=== PATIENT | male | born 1975 | race Caucasian/White ===

== ENCOUNTER 2017-08-14 18:45 | Emergency (ER) | payer OTHER ==
[2017-08-14 19:21] LABS: #Eosinphils 0.1 thou/uL (0.0-0.7); #Lymphocytes 2.4 thou/uL (1.20-3.40); #Monocytes 0.4 thou/uL (0.11-0.59); #Neutrophils 3.4 thou/uL (1.40-6.50); %Basophils 0.7 % (0.0-1.0); %Eosinophils 0.8 % (0.0-10.0); %Lymphocytes 37.8 % (21.0-51.0); %Monocytes 6.5 % (0.0-10.0); Hematocrit 46.2 % (42.0-52.0); Mean Platelet Volume 7.1 fL (7.4-10.4); Red Blood Cell (RBC) Count 5.65 mill/uL (4.70-6.10); White Blood Cell (WBC) Count 6.3 thou/uL (4.8-10.8)
[2017-08-14 19:44] LABS: Acetaminophen Less than 6.0 mcg/mL (10.0-30.0); Salicylate Less than 8.0 mg/dL (15.0-30.0)
[2017-08-14 19:45] LABS: ALT (SGPT) 23 U/L (8-55); AST (SGOT) 31 U/L (5-34); Alkaline Phosphatase 111 U/L (40-150); Anion Gap 17 mmol/L (10-20); BUN (Urea Nitrogen) 8 mg/dL (8.9-20.6); Bilirubin, Total Less than 0.2 mg/dL (0.2-1.2); Calc. Creatinine Clearance 0 mL/min (70-130); Calcium 8.7 mg/dL (7.8-10.44); Carbon Dioxide 22 mmol/L (22-29); Chloride 107 mmol/L (98-107); Estimated GFR-MDRD 60; Globulin 4.3 g/dL (2.4-3.5); Protein, Total 8.3 g/dL (6.0-8.3)
[2017-08-14] MEDS ORDERED: Lorazepam 1 MG TAB ONE (20:08)
[2017-08-14] MEDS ORDERED: Dexamethasone 10 MG/ML VIAL FS SCH (20:30)
[2017-08-14] MEDS ORDERED: Dexamethasone 4 mg/ml Vial ONE (20:35)
[2017-08-14] MEDS ORDERED: Ziprasidone 20 MG VIAL ONE (21:26)
[2017-08-14] MEDS ORDERED: Sterile Water 10 ML ONE (21:27)
[2017-08-14 22:25] LABS: Bilirubin Negative (Negative); Blood, Urine Negative (Negative); Glucose, Urine (Dipstick) Negative (Negative); Ketone, Urine Negative (Negative); Nitrite Negative (Negative); Protein, Urine (Dipstick) Negative (Neg-Trace); Urobilinogen 0.2 mg/dL (0.2-1.0)
[2017-08-14 22:41] LABS: Amphetamine Not Detected (NotDetected); Methadone Not Detected (NotDetected); Methamphetamine Not Detected (NotDetected)
[2017-08-15] MEDS ORDERED: Acetaminophen 500 MG TAB ONE ×2 (06:30→17:59)
[2017-08-15] MEDS ORDERED: Mag-Al 1200 mg/1200 mg/30 ML UDCUP ONE (10:03)
[2017-08-15] MEDS ORDERED: HYDROcodone/Acetaminophen 10/325 mg Tablet ONE (10:03)
[2017-08-15] MEDS ORDERED: Lidocaine Viscous Sol 2% 15 ml UD Cup ONE (10:03)
[2017-08-16] MEDS ORDERED: Ondansetron ODT 4 MG TAB ONE (12:04)
[2017-08-16] MEDS ORDERED: hydrOXYzine 25 MG TAB PO ONE (14:00)
== END 2017-08-16 13:57 ==
LOC: ERS 18:45
DX: R45.851 Suicidal ideations (principal); F10.129 Alcohol abuse with intoxication, unspecified; K50.90 Crohn's disease, unspecified, without complications; F41.9 Anxiety disorder, unspecified; F32.9 Major depressive disorder, single episode, unspecified
CPT/HCPCS: 36415; 51701; 80053; 80306; 80307; 81003; 82550; 84443; 85025; 96372; A4216; J1100; J3486; Q0162

== ENCOUNTER 2020-10-19 21:57 | Inpatient (IN) | payer OTHER ==
--- NOTE | 2020-10-19 23:27 | RAD ---
PORTABLE CHEST: Date: 10/19/2020 PROVIDED CLINICAL HISTORY: Small bowel obstruction. FINDINGS: Correlation is made with CT examination performed earlier same date and chest radiograph of 4. The cardiac silhouette appears enlarged, likely at least partially on the basis of portable technique . The lung apices are not included, limiting evaluation. The visualized lung parenchyma is free of morrow spicious opacity. There is no pleural fluid evident. Evaluation for pneumothorax is limited. An enter ic catheter is noted, the distal side hole lucency of which overlies the expected location of the dis jasmine thoracic esophagus and this catheter could be advanced. Extensive peritoneal calcifications are a gain seen. IMPRESSION: Enteric catheter positioning as described. POS: ALEX
[2020-10-20] MEDS ORDERED: Sodium Chloride 0.9% (PF) 10 ML VIAL FS PRN (00:45)
[2020-10-20] MEDS ORDERED: Ondansetron ODT 4 MG TAB SL PRN (00:45)
[2020-10-20] MEDS ORDERED: Ondansetron PF 4 MG/2 ML Vial IVP PRN (00:45)
[2020-10-20] MEDS: Morphine 4 MG/ML VIAL SLOW IVP PRN ×6 (00:48→21:43)
[2020-10-20] MEDS: Sodium Chloride 0.9% 1,000 ML IV SCH ×2 (00:49→08:57)
[2020-10-20 01:32] VITALS: BMI 32.5
[2020-10-20] MEDS ORDERED: Pantoprazole 40 MG VIAL IVP SCH (09:00)
[2020-10-20] MEDS ORDERED: MD-Gastroview 120 ML BOT ONE (09:35)
[2020-10-20] MEDS ORDERED: Ketorolac Tromethamine 30 MG/ML VIAL ONE (11:28)
[2020-10-20] MEDS ORDERED: Ketorolac Tromethamine 30 MG/ML VIAL IVP SCH (11:30)
--- NOTE | 2020-10-20 13:02 | RAD ---
Gastrografin enema Power scribe today COMPARISON: CT of the abdomen pelvis 10/19/2020 HISTORY: Evaluate patency of anastomosis FINDINGS: Esol Teacher Assistant imaging of the abdomen and pelvis demonstrate scattered areas of peritoneal calcifica tion. Nasogastric tube curls in the upper abdomen. Gastrografin was instilled in a retrograde fashion. The contrast media opacifies the colon from the l evel of the rectum through the level of the mid transverse colon. There is a small bowel to colonic anastomosis in the region of the mid transverse colon. The contrast traverses the anastomosis without delay and fills multiple small bowel loops proximal to the anastomosis. No extraluminal contrast media seen to suggest the presence of a leak at the anastomosis. Some of the small bowel loops just proximal to the anastomosis are dilated. IMPRESSION: Gastrografin enema demonstrates patency of the anastomosis involving small bowel to trans verse colon with no evidence for extraluminal contrast media/leak.
[2020-10-20 16:22] LABS: SARS-CoV-2 MS2 Positive; SARS-CoV-2 N Gene Negative; SARS-CoV-2 S Gene Negative; SARS-CoV-2 by NAA Not Detected (NotDetected); SARS-CoV-2 orf1ab Negative
--- NOTE | 2020-10-20 17:20 | CON ---
DATE OF CONSULTATION: 10/20/2020 REQUESTING PHYSICIAN: Dr. Root. REASON FOR CONSULTATION: Crohn disease and small bowel obstruction. HISTORY OF PRESENT ILLNESS: Kranthi Whitaker is a 45-year-old man with a history of obesity, depression, anxiety, and Crohn disease. He has a complicated Crohn's history. He says he was diagnosed about 23 years ago. He has small and large bowel stricturing disease. He has actually had 14 prior surgeries including 3 ileostomies. He has had complications of perforation with initial barium study and has developed a lot of intraabdominal adhesive disease. At one point back around 2014, he was on TPN for a year. At this point, he is on Humira monotherapy at the standard dose of 40 mg injected every 2 weeks. This is under the direction of Dr. Ian Ackerman, IBD specialist at [facility] in [place]. He gets all of his care at the [facility] and [facility]. Over the past several years, he says he will have at least 2 to 3 episodes per year of bowel obstructions requiring hospitalization for varying amounts of time. He was admitted here last night with several days of worsening abdominal pain and distention followed by nausea. Upon presentation last night, he had a mild leukocytosis with WBC 11.3, and CT of the abdomen and pelvis demonstrated extensive postoperative changes in the right abdomen with multiple dilated small bowel loops in the area representing small bowel obstruction. The colon was decompressed and there is no inflammatory stranding. He had a Gastrografin enema study done today and this shows that the small bowel to transverse colon anastomosis appears patent without any evidence of leak. He is currently feeling okay, pain fairly well controlled, NG tube to suction, sucking out bilious liquid. He is passing a little bit of gas this afternoon. REVIEW OF SYSTEMS: Full review of systems including constitutional, head, eyes, ears, nose, throat, GI, , cardiovascular, respiratory, musculoskeletal, neurologic systems is negative except as noted in the HPI. PAST MEDICAL HISTORY: 1. Crohn disease. 2. Fourteen prior abdominal surgeries. 3. Depression and anxiety. 4. Hypertension. SOCIAL HISTORY: No smoking, alcohol, or drug use. FAMILY HISTORY: Noncontributory. ALLERGIES: CODEINE. OUTPATIENT MEDICATIONS: 1. Vitamin D3. 2. Atenolol. 3. Atorvastatin. 4. Bupropion. 5. Vitamin B12. 6. Cyproheptadine. 7. Fluoxetine. 8. Seroquel. 9. Diazepam. 10. Humira 40 mg subcutaneously every 2 weeks. PHYSICAL EXAMINATION: VITAL SIGNS: Temperature 98, pulse 81, blood pressure 148/80, 90% oxygen saturation on room air. GENERAL: Obese 45-year-old man, lying in bed comfortably, in no distress. SKIN: No jaundice. No rashes were palpable. EYES: No scleral icterus. Extraocular movements intact. ENT: He has nasogastric tube to the left naris suctioning out dark bilious fluid but no blood. Mucous membranes moist. LYMPH: No submandibular or supraclavicular lymphadenopathy. THYROID: Nontender to palpation. HEART: Regular rate and rhythm. LUNGS: Clear to auscultation bilaterally. ABDOMEN: Multiple abdominal surgical scars, are all well healed. Mild distention. High-pitched bowel sounds in all 4 quadrants, particularly on the right side of the abdomen. Diffuse tenderness to palpation, but no guarding or rebound tenderness. EXTREMITIES: No peripheral edema. VESSELS: Radial pulses 2+ bilaterally. NEURO: Cranial nerves 2 through 12 intact bilaterally. No focal deficits. Mental; he is somnolent, but easily arousable and oriented x3. LABORATORY STUDIES: WBC 11.3, hemoglobin 16.0, platelets 248. Sodium 139, potassium 4.2, BUN 18, creatinine 1.23. Lipase only 21. LFTs all normal with total bilirubin 0.3, alkaline phosphatase 104, AST 26, ALT 39, albumin 4.3. COVID PCR is pending. IMAGING STUDIES: CT of the abdomen and pelvis demonstrated extensive peritoneal calcifications, absence of the right hemicolon, extensive postoperative changes of the right abdomen with multiple dilated small-bowel loops representing small bowel obstruction, but decompression of the colon. There is no inflammatory stranding noted. There is also a 2.1 cm density adjacent to the head of the pancreas, which is indeterminate. Gastrografin enema demonstrates patency of the small bowel to transverse colon anastomosis without evidence of leak. ASSESSMENT AND PLAN: 1. Small-bowel obstruction, recurrent. 2. Crohn disease, complicated history, but it appears with minimal active inflammatory disease, on Humira monotherapy. 3. Intraabdominal adhesive disease, with multiple prior small bowel obstructions. This is a difficult situation as the patient has what appears to be extensive intraabdominal adhesive disease and has had multiple prior presentations. 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 We can check some inflammatory markers with labs tomorrow, but I do not anticipate making any changes in therapy here nor do I think prednisone is necessarily going to help at this time. Continue nasogastric tube for now, but if output decreases, hopefully we will see this resolve within the next day or two. 4. Indeterminate pancreatic lesion. There is a 2.1 cm density adjacent to the head of the pancreas. I do not have any prior imaging to compare this to. This is an incidental finding and not likely to represent any malignant process. He should have a dedicated CT of the abdomen, pancreatic protocol, at some point in the next 2 to 3 months to follow this up. This could be done with his primary providers at [facility] in [place]. Thank you for the consultation. Please call anytime with questions or concerns. Job ID: [id number]
[2020-10-20] MEDS: D5 1/2 NS w/20 mEq KCL 1,000 ML IV SCH ×2 (17:37→21:22)
--- NOTE | 2020-10-20 18:02 | PDOC.HOSPP ---
- Subjective Encounter Date: 10/20/20 Encounter Time: 17:58 Subjective: CONSULTATION NOTE CONSULT REQUESTED BY: DR. HAMEED CONSULT FOR: MEDICAL MANAGEMENT HISTORY OF PRESENT ILLNESS: Mr. Whitaker is a 45-year-old male with past medical history significant for severe Crohn's disease requiring multiple abdominal surgeries including bowel resections and multiple ileostomies, hypertension, hyperlipidemia, PTSD, anxiety/depression, septic shock secondary to Crohn's disease with cardiac arrest x2 in 2012. He presented to the emergency room for abdominal pain and was found to have a small bowel obstruction. Patient was admitted by general surgery service and underwent a barium enema. Patient currently in bed resting comfortably. He denies chest pain, shortness of breath, palpitations. He endorses mild to moderate abdominal pain, which she reports has improved since his barium enema. He has an NG tube in place which he reports has also improved his abdominal discomfort. Patient reports his abdominal pain began a few days prior to admission around giving. Hospital service consulted for medical management of patient's chronic conditions. - Objective Vital Signs & Weight: Vital Signs (12 hours) Temp Pulse Resp BP Pulse Ox 10/20/20 16:24 98.1 F 67 18 129/83 90 L 10/20/20 11:58 98.0 F 81 12 148/80 H 90 L 10/20/20 08:09 99.1 F 92 16 135/80 93 L 10/20/20 08:00 93 L Weight Weight 220 lb I&O: 10/19/20 10/20/20 10/21/20 06:59 06:59 06:59 Intake Total 720 Balance 720 Hospitalist ROS - Review of Systems Constitutional: denies: fever, chills, sweats Eyes: denies: vision change ENT: denies: nose congestion, throat pain Respiratory: denies: cough, shortness of breath, hemoptysis Cardiovascular: denies: chest pain, palpitations, orthopnea, light headedness Gastrointestinal: reports: nausea, abdominal pain Genitourinary: denies: dysuria Skin: denies: rash, lesions Neurological: denies: weakness, numbness - Medication Medications: Patient's home medications include Atenolol Atorvastatin Bupropion Vitamin D Vitamin B12 Cyproheptadine Diazepam Fluoxetine Seroquel Patient reports allergy to codeine which he reports behavioral disturbance from - Exam General Appearance: NAD, awake alert General - other findings: NG tube in place Eye: PERRL, anicteric sclera ENT: normocephalic atraumatic, no oropharyngeal lesions, moist mucosa Neck: supple, symmetric, no JVD, no thyromegaly, no lymphadenopathy, no carotid bruit Heart: RRR, no murmur, no gallops, no rubs, normal peripheral pulses Respiratory: CTAB, no wheezes, no rales, no ronchi, normal chest expansion, no tachypnea, normal percussion Gastrointestinal: soft, tender to palpation Gastrointestinal - other findings: Hyperactive bowel sounds, multiple abdominal scars Extremities: no cyanosis, no clubbing, no edema Skin: normal turgor, no lesions, no rashes Neurological: cranial nerve grossly intact, normal sensation to touch, no weakness, no focal deficits, no new deficit Musculoskeletal: normal tone, normal strength, no muscle wasting Psychiatric: normal affect, normal behavior, A&O x 3 Hosp A/P - Plan 45-year-old male with past medical history significant for severe Crohn's disease requiring multiple surgeries, PTSD, anxiety and depression, hypertension, hyperlipidemia presents with abdominal pain found to have small bowel obstruction. Hospitalist service consulted for medical management of patient's chronic conditions. Small bowel obstruction Patient with abdominal pain, history significant for multiple abdominal surgeries. Patient admitted by general surgery for small bowel obstruction. Patient underwent therapeutic barium enema. NG tube is in place. Plan General surgery primary Crohn's disease Patient has severe Crohn's disease requiring multiple surgeries including bowel resections and ileostomy's. Patient also had severe sepsis secondary to Crohn's which resulted in cardiac arrest x2 and prolonged 1 year ICU stay in 2013. Patient follows with Dr. Ian Ackerman at [facility] in [place]. He is maintained on Humira. Gastroenterology was consulted for further recommendations. We will draw inflammatory markers. Plan Inflammatory markers GI consult, recommendations appreciated Pancreatic lesion Patient had incidental mass adjacent to head of pancreas. Patient will need outpatient follow-up for this incidental finding. Leukocytosis White blood cell count elevated to 11.3. Likely reactive. No other signs of i nfection at this time. Patient afebrile, not tachycardic not tachypneic. Does not meet SIRS criteria currently. We will continue to monitor Plan Trend white blood cell count Hypertension History of hypertension on atenolol. Patient normotensive. We will continue home atenolol. Hyperlipidemia We will continue home atorvastatin. Anxiety and depression History of PTSD, anxiety/depression. On home Wellbutrin, cyproheptadine, Valium, fluoxetine and Seroquel. We will continue home medications. Patient currently denies SI/HI. DVT prophylaxisper surgical team Full code
[2020-10-20] MEDS: Atenolol 25 MG TAB PO SCH (20:28)
[2020-10-20] MEDS: Pantoprazole 40 MG VIAL IVP SCH (20:28)
[2020-10-20] MEDS: Atorvastatin Calcium 10 MG TAB PO SCH (20:28)
[2020-10-20] MEDS: FLUoxetine HCl 20 MG CAP PO SCH (20:29)
[2020-10-20] MEDS: Cyproheptadine 4 MG TAB PO SCH (21:43)
[2020-10-21] MEDS: D5 1/2 NS w/20 mEq KCL 1,000 ML IV SCH ×3 (03:33→21:14)
[2020-10-21] MEDS: Morphine 4 MG/ML VIAL SLOW IVP PRN ×3 (03:33→12:36)
--- NOTE | 2020-10-21 07:48 | HP ---
CHIEF COMPLAINT: Abdominal pain, nausea and vomiting. HISTORY OF PRESENT ILLNESS: Mr. Whitaker is a 45-year-old man with a past history of Crohn disease, status post 14 surgeries for this at the [facility]. His terrazzo tile setter is a Jamie terrazzo tile setter in [place] and he has not really received any care for his Crohn's at our facility. He states that he was in his normal state of health until yesterday, when he started having diffuse crampy abdominal pain across the entire upper abdomen, coming in waves, he then began throwing up and the pain was not getting better, so he came to the emergency room. He underwent a CT of the abdomen and pelvis, which showed evidence of a small bowel obstruction. The transition point was possibly at his enterocolic anastomosis in the transverse colon. He had an NG tube placed and was transferred to [place] for further care. Since then, the waves of abdominal pain across the upper abdomen have resolved, but he is still having some pain in the right side of his abdomen. He has not had any further vomiting since placement of the NG tube and there is bilious output from this. He has not had a bowel movements or pass gas to his knowledge since onset of his symptoms. PAST MEDICAL HISTORY: Crohn disease, hypertension. PAST SURGICAL HISTORY: Fourteen laparotomies including three ostomies and subsequent take downs. He had one episode, where he had an upper GI with barium and then underwent a resection for a stricture, but the anastomosis blew out and had a barium peritonitis for 3 months. His last surgery was a few years back. He does not currently have any ostomies. SOCIAL HISTORY: The patient does not smoke, drink, or use illicit drugs. He receives most of his care at the [facility]. OUTPATIENT MEDICATIONS: Include; 1. Humira 40 mg subcu every two weeks, administered yesterday. 2. Seroquel 400 mg p.o. daily. 3. Fluoxetine 20 mg p.o. daily. 4. Diazepam 5 mg p.o. p.r.n. anxiety. 5. Cyproheptadine 4 mg p.o. daily. 6. Vitamin B12, 1000 mcg p.o. daily. 7. Bupropion 300 mg p.o. daily. 8. Atorvastatin 10 mg p.o. daily. 9. Atenolol 25 mg p.o. daily. 10. Vitamin D3, 50,000 units p.o. daily. REVIEW OF SYSTEMS: Ten system review of systems is negative except per HPI and headache. PHYSICAL EXAMINATION: VITAL SIGNS: The patient has been afebrile since admission. Heart rate 81, respirations 12, 90% saturated on room air, blood pressure 148/80. GENERAL: Reveals a healthy-appearing man, in no acute distress, although he intermittently grimaces and rubs his stomach. He has an NG tube in place. HEENT: Unremarkable. Pupils are equal. Extraocular movements are intact. Facial movements are symmetric. NECK: Supple without lymphadenopathy or thyroid nodules. He does not have any jaundice or icterus. Not flushed or toxic in appearance. HEART: Regular in its rate and rhythm without murmurs, rubs, or gallops. LUNGS: Clear to auscultation bilaterally. ABDOMEN: Soft and nondistended. Bowel sounds are hypoactive. He has tenderness to palpation in the right abdomen greater than the left abdomen. He does not exhibit rigidity, rebound, or guarding. He has healed midline incisions and colostomy incisons. EXTREMITIES: Warm and well perfused without significant edema. NEURO: No focal deficits. PSYCHIATRIC: Alert, oriented, and appropriate. LABORATORY DATA: White count is mildly elevated at 11.3, hematocrit 50, platelets 248. Electrolytes are unremarkable. BUN and creatinine are and 1.23, glucose is 109, albumin is 4.3. LFTs are . Lipase is . IMAGING STUDIES: CT images are reviewed and I agree with the written report. He had a chest x-ray after placement of his NG tube. At that point, the NG tube looked like the tip was at the GE junction, but it has since been advanced to 80 cm. ASSESSMENT AND PLAN: Small bowel obstruction with transition point, possibly at the enterocolic anastomosis. He has an NG tube in place with bilious drainage and is symptomatically improved since his admission, although still having some crampy abdominal pain. I have ordered a Gastrografin enema to try to see the anastomosis and ensure that is patent. If he has a stricture at this level, colonoscopic dilation could be considered. Certainly relatively high risk for reoperation given his 14 laparotomies. I did discuss with the patient transfer to the [facility] since he has received all of his previous care there and he has declined transfer at this point. I have consulted Dr. Foster of Gastroenterology for assistance with this complicated Crohn's patient; however, I think that this is more likely a surgical than a medical issue. However, Crohn's flare cannot be entirely . I am going to also consult the hospitalist for medication management. I have restarted his beta-coty. Job ID: [id number]
[2020-10-21] MEDS: Pantoprazole 40 MG VIAL IVP SCH ×2 (08:22→21:14)
[2020-10-21] MEDS: Bupropion 150 MG XL TAB PO SCH (08:28)
[2020-10-21] MEDS ORDERED: Acetaminophen 650 MG Suppository PR PRN (08:52)
--- NOTE | 2020-10-21 09:28 | RAD ---
ABDOMEN 1 VIEW: Date: 10/21/2020 HISTORY: Small bowel obstruction. FINDINGS/IMPRESSION: There is a nasogastric tube with tip in the distal stomach. There is residual contrast in the colon a nd rectum. Scattered areas of peritoneal calcifications are again seen as in the remediation bioanalytics consultant film of the pr ious day's barium enema. The small bowel loops are not abnormally dilated. POS: MZA
[2020-10-21] MEDS: Enoxaparin Sodium 40 MG/0.4 ML SYRINGE SC SCH ×2 (10:00→21:13)
--- NOTE | 2020-10-21 11:49 | PDOC.HOSPP ---
- Subjective Encounter Date: 10/21/20 Encounter Time: 11:44 Subjective: No overnight events. Patient resting comfortably in bed with NG tube in place. Continues to endorse mild abdominal pain. Denies chest pain, shortness of breath. Chart and medications reviewed. - Objective Vital Signs & Weight: Vital Signs (12 hours) Temp Pulse Resp BP Pulse Ox 10/21/20 11:42 98.4 F 78 12 132/82 93 L 10/21/20 08:15 97.6 F 73 14 132/82 93 L 10/21/20 08:00 93 L 10/21/20 03:56 97.9 F 62 16 117/75 92 L 10/21/20 00:03 97.7 F 70 16 113/74 97 Weight Weight 220 lb I&O: 10/20/20 10/21/20 10/22/20 06:59 06:59 06:59 Intake Total 720 1500 Output Total 400 200 Balance 320 1300 Result Diagrams: 10/22/20 07:09 10/24/20 05:40 Hospitalist ROS - Review of Systems Constitutional: denies: fever, chills, sweats, weakness, malaise, other Eyes: denies: vision change ENT: denies: nose congestion, throat pain Respiratory: denies: cough, shortness of breath Cardiovascular: denies: chest pain, palpitations, light headedness Gastrointestinal: reports: abdominal pain. denies: nausea, vomiting Genitourinary: denies: dysuria Skin: denies: rash, lesions Neurological: denies: weakness, numbness - Medication Medications: Active Medications Generic Name Dose Route Start Last Admin Trade Name Freq PRN Reason Stop Dose Admin Atenolol 25 mg 10/20/20 21:00 10/20/20 20:28 Atenolol 25 Mg Tab PO 25 mg HS FAMILIA Administration Atorvastatin Calcium 10 mg 10/20/20 21:00 10/20/20 20:28 Atorvastatin Calcium 10 Mg Tab PO 10 mg HS FAMILIA Administration Bupropion HCl 300 mg 10/21/20 09:00 10/21/20 08:28 Bupropion 150 Mg Xl Tab PO Not Given QAM FAMILIA Cyproheptadine HCl 4 mg 10/20/20 21:00 10/20/20 21:43 Cyproheptadine 4 Mg Tab PO 4 mg HS FAMILIA Administration Enoxaparin Sodium 40 mg 10/21/20 09:00 10/21/20 10:00 Enoxaparin Sodium 40 Mg/0.4 Ml Syringe SC Not Given 0900,2100 [facility] Fluoxetine HCl 20 mg 10/20/20 21:00 10/20/20 20:29 Fluoxetine Hcl 20 Mg Cap PO 20 mg HS FAMILIA Administration Potassium Chloride/Dextrose/Sod Cl 1,000 mls @ 120 mls/hr 10/20/20 12:15 10/21/20 03:33 D5 1/2 Ns W/20 Meq Kcl IV 1,000 mls .[id number] FAMILIA Administration Morphine Sulfate 4 mg 10/20/20 12:05 10/21/20 08:21 Morphine 4 Mg/Ml Vial SLOW IVP 4 mg Q4H PRN Administration Moderate to Severe Pain (6-10) Pantoprazole Sodium 40 mg 10/20/20 21:00 10/21/20 08:22 Pantoprazole 40 Mg Vial IVP 40 mg Q12HR FAMILIA Administration Quetiapine Fumarate 800 mg 10/20/20 21:00 10/20/20 20:27 Quetiapine Fumarate 200 Mg Tab PO 800 mg HS FAMILIA Administration - Exam General Appearance: NAD, awake alert Eye: PERRL, anicteric sclera ENT: normocephalic atraumatic, no oropharyngeal lesions, moist mucosa Neck: supple, symmetric, no JVD, no thyromegaly, no lymphadenopathy, no carotid bruit Heart: RRR, no murmur, no gallops, no rubs, normal peripheral pulses Respiratory: CTAB, no wheezes, no rales, no ronchi, normal chest expansion, no tachypnea, normal percussion Gastrointestinal: soft, non-distended, no guarding, tender to palpation Extremities: no cyanosis, no clubbing, no edema Skin: normal turgor, no lesions, no rashes Neurological: normal sensation to touch, no weakness, no focal deficits Musculoskeletal: normal tone, normal strength, no muscle wasting Psychiatric: normal affect, normal behavior, A&O x 3 Hosp A/P - Plan 45-year-old male with past medical history significant for severe Crohn's disease requiring multiple surgeries, PTSD, anxiety and depression, hypertension, hyperlipidemia presents with abdominal pain found to have small bowel obstruction. Hospitalist service consulted for medical management of patient's chronic conditions. Small bowel obstruction Patient with abdominal pain, history significant for multiple abdominal surgeries. Patient admitted by general surgery for small bowel obstruction. Patient underwent therapeutic barium enema. NG tube is in place. Plan General surgery primary Crohn's disease Patient has severe Crohn's disease requiring multiple surgeries including bowel resections and ileostomy's. Patient also had severe sepsis secondary to Crohn's which resulted in cardiac arrest x2 and prolonged 1 year ICU stay in 2013. Patient follows with Dr. Ian Ackerman at [facility] in [place]. He is maintained on Humira. Gastroenterology was consulted who felt likely not a chron's flare. 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 Inflammatory markers pending. Plan Continue home Humira (last injection tanya FLAKE MILLER HELPER) -GI following, not felt to be flare Pancreatic lesion Patient had incidental mass adjacent to head of pancreas. Patient will need outpatient follow-up for this incidental finding. GI recommended outpatient follow up with repeat scan in 3 months. Plan -Outpatient f/u with repeat scan in 3 months Leukocytosis White blood cell count elevated to 11.3. Likely reactive. No other signs of infection at this time. Patient afebrile, not tachycardic not tachypneic. Does not meet SIRS criteria currently. We will continue to monitor. Plan Trend white blood cell count Hypertension History of hypertension on atenolol. Patient normotensive. We will continue home atenolol. Hyperlipidemia We will continue home atorvastatin. Anxiety and depression History of PTSD, anxiety/depression. On home Wellbutrin, cyproheptadine, Valium, fluoxetine and Seroquel. We will continue home medications. Patient currently denies SI/HI. DVT prophylaxisper surgical team Full code
--- NOTE | 2020-10-21 12:01 | PDOC.GSPN ---
Surgery Progress Note: Subj - Subjective Narrative: Patient had few bowel movements after his Gastrografin enema yesterday. He is unsure whether he has passed any gas however. He is still having some abdominal pain but it is improved. NG output is still bilious. NG was pulled back to about 60 cm as it appeared to be postpyloric on his Gastrografin enema yesterday. His abdomen is still slightly distended and tender on the right more than the left. Bowel sounds are diminished. Vital signs are okay. CRP and ESR are elevated. Assessment/plan: Crohn's disease, reportedly stable on Humira. Small bowel obstruction versus ileus likely due to extensive adhesive disease from 14 previous laparotomies including an episode of barium peritonitis. Continue bowel rest and NG decompression. Patient was encouraged to ambulate frequently. If he does not show signs of improvement we may transfer him to the MD where he has received all of his previous surgical care. Surgery Progress Note: Obj - Vital signs Vital signs: Vital Signs - Most Recent Temp Pulse Resp BP Pulse Ox 98.4 F 78 12 132/82 93 L 10/21/20 11:42 10/21/20 11:42 10/21/20 11:42 10/21/20 11:42 10/21/20 11:42 Surgery Progress Note: Results - Labs Lab results: Laboratory Results - last 12 hr 10/21/20 10/21/20 05:54 05:54 ESR Westergren 44 H C-Reactive Protein 4.96 H
[2020-10-21 12:35] LABS: #Eosinphils 0.2 thou/uL (0.0-0.7); #Lymphocytes 1.1 thou/uL (1.20-3.40); #Monocytes 0.6 thou/uL (0.11-0.59); #Neutrophils 5.3 thou/uL (1.40-6.50); %Eosinophils 2.2 % (0.0-10.0); %Lymphocytes 14.8 % (21.0-51.0); %Monocytes 8.8 % (0.0-10.0); %Neutrophils 74.1 % (42.0-75.0); Hemoglobin 12.4 g/dL (14.0-18.0); Mean Corpuscular Hemoglobin 27.2 pg (27.0-31.0); Mean Corpuscular Volume 85.1 fL (78.0-98.0); Mean Platelet Volume 7.2 fL (7.4-10.4); Platelet Count 185 thou/uL (130-400); RBC Distribution Width 14.9 % (11.5-14.5); Red Blood Cell (RBC) Count 4.54 mill/uL (4.70-6.10); White Blood Cell (WBC) Count 7.1 thou/uL (4.8-10.8)
[2020-10-21] MEDS: Ondansetron PF 4 MG/2 ML Vial IVP PRN (12:36)
[2020-10-21 12:44] LABS: Anion Gap 12 mmol/L (10-20); BUN (Urea Nitrogen) 9 mg/dL (8.9-20.6); Calc. Creatinine Clearance 131 mL/min (70-130); Calcium 8.4 mg/dL (7.8-10.44); Carbon Dioxide 29 mmol/L (22-29); Chloride 102 mmol/L (98-107); Estimated GFR-MDRD 79; Glucose 101 mg/dL (70-105); Potassium 4.1 mmol/L (3.5-5.1); Sodium 139 mmol/L (136-145)
--- NOTE | 2020-10-21 13:36 | PRG ---
DATE OF SERVICE: 10/21/2020 SUBJECTIVE: Mr. Whitaker had a lot of stool output passing, the Gastrografin that was administered yesterday. He has passed a little bit of gas aside from that as well. His abdominal pain persists, but is significantly less. He continues to have a bit of nausea, but no vomiting. Nasogastric tube remains to suction. OBJECTIVE: VITAL SIGNS: Temperature 98.4, pulse 78, blood pressure 132/82, 93% oxygen saturation on room air. GENERAL: No acute distress. Nasogastric tube in place. HEART: Regular rate and rhythm. LUNGS: Clear to auscultation bilaterally. ABDOMEN: Bowel sounds hypoactive. High-pitched. ABDOMEN: Mildly tender to palpation throughout. EXTREMITIES: No peripheral edema. LABORATORY STUDIES: WBC 7.1, hemoglobin 12.4, platelets 185. ESR elevated to 44. CRP elevated to 4.96. Sodium 139, potassium 4.1, BUN 9, creatinine 1.03. COVID PCR is negative. IMAGING STUDIES: Abdominal x-ray from earlier this morning demonstrates good positioning of the nasogastric tube with tip in the distal stomach. There is residual contrast in the colon and rectum. Scattered peritoneal calcifications. No abnormal dilation of small bowel loops on today's imaging. ASSESSMENT/PLAN: 1. Small bowel obstruction, recurrent, some clinical improvement today with nasogastric tube suction. 2. Crohn disease, complicated history, with multiple prior abdominal surgeries. Overall, the patient seems to be improving and I am hopeful that this small bowel obstruction episode will resolve over the next day or two. ESR and CRP are both mildly elevated. In some patients, there is correlation of these markers with active Crohn disease. The patient is not enthusiastic about taking oral steroids as an outpatient, but he is agreeable to starting IV steroids here for a day or two to see if this might hasten symptom resolution. We will go ahead and start IV methylprednisolone 20 mg q.8 hours for now. Otherwise, the plan is for him to continue on Humira, but followup with his primary key bed installer, Dr. Ian Ackerman, in the next few weeks. Job ID: [id number] MTDD
[2020-10-21] MEDS: methylPREDNISolone Sod Succ 40 MG VIAL IVP SCH ×2 (14:12→21:14)
[2020-10-21] MEDS: Morphine 2 MG/ML VIAL SLOW IVP PRN ×2 (16:34→21:15)
[2020-10-21] MEDS: Atenolol 25 MG TAB PO SCH (21:12)
[2020-10-21] MEDS: Atorvastatin Calcium 10 MG TAB PO SCH (21:12)
[2020-10-21] MEDS: Cyproheptadine 4 MG TAB PO SCH (21:13)
[2020-10-21] MEDS: FLUoxetine HCl 20 MG CAP PO SCH (21:13)
[2020-10-22] MEDS: Morphine 4 MG/ML VIAL SLOW IVP PRN ×3 (03:39→21:20)
[2020-10-22] MEDS: methylPREDNISolone Sod Succ 40 MG VIAL IVP SCH ×3 (05:05→21:20)
[2020-10-22] MEDS: D5 1/2 NS w/20 mEq KCL 1,000 ML IV SCH ×2 (05:09→09:05)
[2020-10-22 07:27] LABS: #Lymphocytes 0.8 thou/uL (1.20-3.40); #Monocytes 0.4 thou/uL (0.11-0.59); #Neutrophils 6.2 thou/uL (1.40-6.50); %Basophils 0.1 % (0.0-1.0); %Eosinophils 0.2 % (0.0-10.0); %Lymphocytes 10.5 % (21.0-51.0); %Monocytes 5.5 % (0.0-10.0); %Neutrophils 83.6 % (42.0-75.0); Hemoglobin 13.3 g/dL (14.0-18.0); Mean Corpuscular HGB CONC 32.5 g/dL (32.0-36.0); Mean Corpuscular Hemoglobin 27.5 pg (27.0-31.0); Mean Corpuscular Volume 84.8 fL (78.0-98.0); Mean Platelet Volume 7.3 fL (7.4-10.4); Platelet Count 233 thou/uL (130-400); RBC Distribution Width 14.6 % (11.5-14.5); Red Blood Cell (RBC) Count 4.83 mill/uL (4.70-6.10); White Blood Cell (WBC) Count 7.5 thou/uL (4.8-10.8)
[2020-10-22 07:51] LABS: ALT (SGPT) 18 U/L (8-55); AST (SGOT) 15 U/L (5-34); Albumin 3.8 g/dL (3.5-5.0); Alkaline Phosphatase 85 U/L (40-110); Anion Gap 13 mmol/L (10-20); BUN (Urea Nitrogen) 6 mg/dL (8.9-20.6); Bilirubin, Total 0.2 mg/dL (0.2-1.2); Calc. Creatinine Clearance 122 mL/min (70-130); Calcium 8.8 mg/dL (7.8-10.44); Carbon Dioxide 29 mmol/L (22-29); Chloride 102 mmol/L (98-107); Estimated GFR-MDRD 73; Globulin 3.4 g/dL (2.4-3.5); Glucose 143 mg/dL (70-105); Potassium 4.9 mmol/L (3.5-5.1); Protein, Total 7.2 g/dL (6.0-8.3); Sodium 139 mmol/L (136-145)
[2020-10-22] MEDS: Pantoprazole 40 MG VIAL IVP SCH ×2 (08:58→21:18)
[2020-10-22] MEDS: Morphine 2 MG/ML VIAL SLOW IVP PRN (08:58)
[2020-10-22] MEDS: Enoxaparin Sodium 40 MG/0.4 ML SYRINGE SC SCH ×2 (09:02→21:20)
--- NOTE | 2020-10-22 09:31 | PRG ---
DATE OF SERVICE: 10/22/2020 SUBJECTIVE: Mr. Whitaker feels a bit better today. He feels his abdominal pain has declined though he is still requiring pain medications. Nausea has improved, and he says he has been passing some small volume loose bowel movements. He got up and walked around a bit yesterday. OBJECTIVE: VITAL SIGNS: Temperature 97.7, pulse 69, blood pressure 110/67, 99% oxygen saturation on room air. GENERAL: No acute distress. Nasogastric tube in place with 500 mL of bilious fluid in the container. HEART: Regular rate and rhythm. LUNGS: Clear to auscultation bilaterally. ABDOMEN: Multiple surgical scars. Bowel sounds remain hypoactive and high-pitched, but are present throughout. Nontender to palpation. EXTREMITIES: No peripheral edema. LABORATORY STUDIES: WBC 7.5, hemoglobin 13.3, platelets 233. Sodium 139, potassium 4.9, BUN 6, creatinine 1.10. ASSESSMENT AND PLAN: 1. Small bowel obstruction, recurrent, with some continued clinical improvement today. Nasogastric tube remains in place, but he has started to pass bowel movements. I encouraged him to continue with ambulation. We will leave it up to the surgical service, but consider trial of clamping the nasogastric tube. 2. Crohn disease, complicated history, with multiple prior abdominal surgeries. ESR and CRP were both elevated, so we did start him on IV methylprednisolone 20 mg q.8 hours yesterday, in the hopes that this may hasten his recovery from this current episode. I do not anticipate he will need to be discharged on oral steroids. He will continue with Humira, and follow up with his primary cigar packer and sorter, Dr. Ian Ackerman in the next few weeks. Job ID: [id number]
[2020-10-22] MEDS: Ondansetron PF 4 MG/2 ML Vial IVP PRN (09:34)
[2020-10-22] MEDS: Bupropion 150 MG XL TAB PO SCH (10:17)
--- NOTE | 2020-10-22 11:10 | PDOC.GSPN ---
Surgery Progress Note: Subj - Subjective Narrative: Feeling a little better. He is passing some gas and having some liquid bowel movements. Still having some pain but not as severe. Abdomen is soft and nondistended. He is still mildly tender in the right abdomen but less than before. NG output has come down although it is still bilious. KUB yesterday still showed some Gastrografin in the distal transverse colon left colon. The NG was in appropriate position and the small bowel did not look dilated. Assessment/plan: Small bowel obstruction likely due to adhesions. No definite transition point on initial CT. Patient has had multiple laparotomies and peritonitis. The anastomosis is patent by Gastrografin enema. His Crohn's appears to be adequately controlled. I have ordered a Gastrografin small bowel follow-through for today. This may not be able to be obtained if he still has a large amount of Gastrografin in his colon, but he has had several bowel movements since his KUB. If we cannot get a Gastrografin small bowel follow- through I would likely just clamp his NG and start him on some clear liquids. Surgery Progress Note: Obj - Vital signs Vital signs: Vital Signs - Most Recent Temp Pulse Resp BP Pulse Ox 97.7 F 69 18 110/67 99 10/22/20 07:44 10/22/20 07:44 10/22/20 07:44 10/22/20 07:44 10/22/20 07:44 Surgery Progress Note: Results - Labs Result Diagrams: 10/22/20 07:09 10/22/20 07:09 Lab results: Laboratory Results - last 12 hr 10/22/20 10/22/20 07:09 07:09 WBC 7.5 RBC 4.83 Hgb 13.3 L Hct 41.0 L MCV 84.8 MCH 27.5 MCHC 32.5 RDW 14.6 H Plt Count 233 MPV 7.3 L Neutrophils % 83.6 H Lymphocytes % 10.5 L Monocytes % 5.5 Eosinophils % 0.2 Basophils % 0.1 Neutrophils # 6.2 Lymphocytes # 0.8 L Monocytes # 0.4 Eosinophils # 0.0 Basophils # 0.0 Sodium 139 Potassium 4.9 Chloride 102 Carbon Dioxide 29 Anion Gap 13 BUN 6 L Creatinine 1.10 Estimated GFR (MDRD) 73 Glucose 143 H Calcium 8.8 Total Bilirubin 0.2 AST 15 ALT 18 Alkaline Phosphatase 85 Serum Total Protein 7.2 Albumin 3.8 Globulin 3.4 Albumin/Globulin Ratio 1.1 L
--- NOTE | 2020-10-22 13:24 | RAD ---
Exam: Gastrografin small bowel HISTORY: Eval for small bowel follow-through. Possible small bowel obstruction. FINDINGS: Initial slabbing machine operator radiograph demonstrates peritoneal hyperdensity in the left and right hemiabd omen which is better demonstrated on the stone protocol CT from 10/19/2020 There is residual contrast in the left hemicolon. Patient was administered Gastrografin. Proximal small bowel loops are prominent. Gastrografin opacifi es the left hemicolon on the one-hour image. IMPRESSION: Proximal small bowel loops are prominent. Nevertheless, no evidence of high-grade obstruc tion as contrast passes into the colon.
[2020-10-22] MEDS ORDERED: Morphine 2 MG/ML VIAL SLOW IVP SCH (17:00)
[2020-10-22] MEDS ORDERED: Morphine 4 MG/ML VIAL SLOW IVP SCH (17:00)
[2020-10-22] MEDS ORDERED: Morphine 2 MG/ML VIAL SLOW IVP PRN (17:01)
--- NOTE | 2020-10-22 19:16 | PDOC.HOSPP ---
- Subjective Encounter Date: 10/22/20 Encounter Time: 19:20 Subjective: f/u for recurrent SBO likely due to adhesions with multiple prior abd surgeries treated with NGT and conservative mgmt. SBFT showed contrast in colon with mild prominent small bowel. - Objective Vital Signs & Weight: Vital Signs (12 hours) Temp Pulse Resp BP Pulse Ox 10/22/20 15:29 97.7 F 58 L 18 140/77 18 L 10/22/20 07:44 97.7 F 69 18 110/67 99 Weight Weight 220 lb I&O: 10/21/20 10/22/20 10/23/20 06:59 06:59 06:59 Intake Total 720 4260 Output Total 400 650 Balance 320 3610 Result Diagrams: 10/22/20 07:09 10/22/20 07:09 Hospitalist ROS - Medication Medications: Active Medications Generic Name Dose Route Start Last Admin Trade Name Freq PRN Reason Stop Dose Admin Atenolol 25 mg 10/20/20 21:00 10/21/20 21:12 Atenolol 25 Mg Tab PO 25 mg HS FAMILIA Administration Atorvastatin Calcium 10 mg 10/20/20 21:00 10/21/20 21:12 Atorvastatin Calcium 10 Mg Tab PO 10 mg HS FAMILIA Administration Bupropion HCl 300 mg 10/21/20 09:00 10/22/20 10:17 Bupropion 150 Mg Xl Tab PO 300 mg QAM FAMILIA Administration Cyproheptadine HCl 4 mg 10/20/20 21:00 10/21/20 21:13 Cyproheptadine 4 Mg Tab PO 4 mg HS FAMILIA Administration Enoxaparin Sodium 40 mg 10/21/20 09:00 10/22/20 09:02 Enoxaparin Sodium 40 Mg/0.4 Ml Syringe SC Not Given [id number],2099 FAMILIA Fluoxetine HCl 20 mg 10/20/20 21:00 10/21/20 21:13 Fluoxetine Hcl 20 Mg Cap PO 20 mg HS FAMILIA Administration Potassium Chloride/Dextrose/Sod Cl 1,000 mls @ 120 mls/hr 10/20/20 12:15 10/22/20 09:05 D5 1/2 Ns W/20 Meq Kcl IV 1,000 mls .Q8H20M FAMILIA Administration Methylprednisolone Sodium Succinate 20 mg 10/21/20 14:00 10/22/20 13:49 Methylprednisolone Sod Succ 40 Mg Vial IVP 20 mg Q8HR FAMILIA Administration Ondansetron HCl 4 mg 10/20/20 12:06 10/22/20 09:34 Ondansetron Pf 4 Mg/2 Ml Vial IVP 4 mg Q6H PRN Administration Nausea/Vomiting Pantoprazole Sodium 40 mg 10/20/20 21:00 10/22/20 08:58 Pantoprazole 40 Mg Vial IVP 40 mg Q12HR FAMILIA Administration Quetiapine Fumarate 800 mg 10/20/20 21:00 10/21/20 21:12 Quetiapine Fumarate 200 Mg Tab PO 800 mg HS FAMILIA Administration
[2020-10-22] MEDS: Atenolol 25 MG TAB PO SCH (21:18)
[2020-10-22] MEDS: Cyproheptadine 4 MG TAB PO SCH (21:18)
[2020-10-22] MEDS: Atorvastatin Calcium 10 MG TAB PO SCH (21:18)
[2020-10-22] MEDS: FLUoxetine HCl 20 MG CAP PO SCH (21:19)
[2020-10-22] MEDS ORDERED: traMADol HCl 50 MG TAB PO PRN (23:45)
[2020-10-23] MEDS: traMADol HCl 50 MG TAB PO PRN ×2 (00:01→12:30)
[2020-10-23] MEDS: D5 1/2 NS w/20 mEq KCL 1,000 ML IV SCH ×3 (00:02→23:56)
[2020-10-23] MEDS: Morphine 4 MG/ML VIAL SLOW IVP PRN ×7 (00:29→21:35)
[2020-10-23 06:17] LABS: Anion Gap 13 mmol/L (10-20); BUN (Urea Nitrogen) 11 mg/dL (8.9-20.6); Calc. Creatinine Clearance 121 mL/min (70-130); Calcium 8.9 mg/dL (7.8-10.44); Carbon Dioxide 31 mmol/L (22-29); Chloride 103 mmol/L (98-107); Estimated GFR-MDRD 72; Glucose 118 mg/dL (70-105); Potassium 4.8 mmol/L (3.5-5.1); Sodium 142 mmol/L (136-145)
[2020-10-23] MEDS: methylPREDNISolone Sod Succ 40 MG VIAL IVP SCH ×3 (06:29→21:17)
[2020-10-23] MEDS: Pantoprazole 40 MG VIAL IVP SCH ×2 (09:24→21:12)
[2020-10-23] MEDS: Bupropion 150 MG XL TAB PO SCH (09:35)
[2020-10-23] MEDS: Enoxaparin Sodium 40 MG/0.4 ML SYRINGE SC SCH ×3 (09:36→21:16)
--- NOTE | 2020-10-23 10:10 | PDOC.HOSPP ---
- Subjective Encounter Date: 10/23/20 Encounter Time: 10:00 Subjective: f/u for SBO tx with NGT appearing to resolve. Tolerating clear liquids this am and less abd discomfort. No N/V and had a BM today. - Objective Vital Signs & Weight: Vital Signs (12 hours) Temp Pulse Resp BP Pulse Ox 10/23/20 07:35 97.8 F 56 L 18 117/77 94 L 10/23/20 03:02 97.7 F 59 L 18 113/65 95 10/22/20 23:05 97.8 F 65 16 125/79 94 L Weight Weight 220 lb I&O: 10/22/20 10/23/20 10/24/20 06:59 06:59 06:59 Intake Total 4260 1470 Output Total 650 650 Balance 3610 820 Result Diagrams: 10/22/20 07:09 10/23/20 05:41 Radiology Reviewed by me: Yes (SBFT - + contrast in colon) Hospitalist ROS - Medication Medications: Active Medications Generic Name Dose Route Start Last Admin Trade Name Freq PRN Reason Stop Dose Admin Atenolol 25 mg 10/20/20 21:00 10/22/20 21:18 Atenolol 25 Mg Tab PO 25 mg HS FAMILIA Administration Atorvastatin Calcium 10 mg 10/20/20 21:00 10/22/20 21:18 Atorvastatin Calcium 10 Mg Tab PO 10 mg HS FAMILIA Administration Bupropion HCl 300 mg 10/21/20 09:00 10/23/20 09:35 Bupropion 150 Mg Xl Tab PO 300 mg QAM FAMILIA Administration Cyproheptadine HCl 4 mg 10/20/20 21:00 10/22/20 21:18 Cyproheptadine 4 Mg Tab PO 4 mg HS FAMILIA Administration Enoxaparin Sodium 40 mg 10/21/20 09:00 10/23/20 09:37 Enoxaparin Sodium 40 Mg/0.4 Ml Syringe SC 40 mg 0900,2100 FAMILIA Administration Fluoxetine HCl 20 mg 10/20/20 21:00 10/22/20 21:19 Fluoxetine Hcl 20 Mg Cap PO 20 mg HS FAMILIA Administration Potassium Chloride/Dextrose/Sod Cl 1,000 mls @ 120 mls/hr 10/20/20 12:15 10/23/20 00:02 D5 1/2 Ns W/20 Meq Kcl IV 1,000 mls .Q8H20M FAMILIA Administration Methylprednisolone Sodium Succinate 20 mg 10/21/20 14:00 10/23/20 06:29 Methylprednisolone Sod Succ 40 Mg Vial IVP 20 mg Q8HR FAMILIA Administration Morphine Sulfate 6 mg 10/22/20 17:02 10/23/20 09:31 Morphine 4 Mg/Ml Vial SLOW IVP 6 mg Q3H PRN Administration Severe Pain (7-10) Ondansetron HCl 4 mg 10/20/20 12:06 10/22/20 09:34 Ondansetron Pf 4 Mg/2 Ml Vial IVP 4 mg Q6H PRN Administration Nausea/Vomiting Pantoprazole Sodium 40 mg 10/20/20 21:00 10/22/20 21:18 Pantoprazole 40 Mg Vial IVP 40 mg Q12HR FAMILIA Administration Quetiapine Fumarate 800 mg 10/20/20 21:00 10/22/20 21:18 Quetiapine Fumarate 200 Mg Tab PO 800 mg HS FAMILIA Administration Tramadol HCl 100 mg 10/22/20 23:45 10/23/20 00:01 Tramadol Hcl 50 Mg Tab PO 100 mg Q4H PRN Administration Moderate Pain (4-6) - Exam General Appearance: NAD, awake alert Eye: PERRL, anicteric sclera ENT: normocephalic atraumatic, no oropharyngeal lesions ENT - other findings: NGT in place Neck: supple, symmetric, no JVD, no thyromegaly, no lymphadenopathy, no carotid bruit Heart: RRR, no murmur, no gallops, no rubs, normal peripheral pulses Heart - other findings: S1, S2 Respiratory: CTAB, no wheezes, no rales, no ronchi, normal chest expansion, no tachypnea Gastrointestinal: soft, non-tender, non-distended, normal bowel sounds, no palpable masses Extremities: no cyanosis, no clubbing, no edema Skin: normal turgor, no lesions Neurological: cranial nerve grossly intact, no new deficit Musculoskeletal: normal tone, normal strength, no muscle wasting Psychiatric: normal affect, A&O x 3 Hosp A/P (1) SBO (small bowel obstruction) Code(s): K56.609 - UNSP INTESTNL OBST, UNSP TO PARTIAL VERSUS COMPLETE OBST Status: Acute Plan: Appears to be resolving, NGT likely to d/c this pm, tolerating clear liquids currently (2) Crohn's disease Code(s): K50.90 - CROHN'S DISEASE, UNSPECIFIED, WITHOUT COMPLICATIONS Status: Acute Plan: No evidence of acute flare, continue supportive mgmt (3) Nausea & vomiting Code(s): R11.2 - NAUSEA WITH VOMITING, UNSPECIFIED Status: Acute Plan: Resolved, Zofran PRN (4) HTN (hypertension) Code(s): I10 - ESSENTIAL (PRIMARY) HYPERTENSION Status: Chronic Qualifiers: Hypertension type: essential hypertension Qualified Code(s): I10 - Essential (primary) hypertension Plan: Continue home Atenolol (5) Leukocytosis Code(s): D72.829 - ELEVATED WHITE BLOOD CELL COUNT, UNSPECIFIED Status: Acute Plan: Resolved - Plan out of bed/ambulate, DVT proph w/lovenox Stable overall Continue supportive mgmt Continue Atenolol Advance diet per Gen Surgery recs OOB/ambulate Likely home in 24h
--- NOTE | 2020-10-23 12:11 | PDOC.GSPN ---
Surgery Progress Note: Subj - Subjective Narrative: Small bowel follow-through showed rapid transit to the colon in 1 hour. The radiologist felt like these were proximal loops but to me it looks like they are more distal. This would correlate with results of his Gastrografin enema. He is still having some pain although less than before. No nausea however. Multiple bowel movements after small bowel follow-through. NG output was fairly high during the day shift but evening or night nurse supervisor output was lower. Assessment/plan: Small bowel follow-through, symptomatically improving. I am going to clamp his NG tube and start him on clear liquids and check residuals. If residuals are low we will DC the NG tube and advance diet as tolerated. Surgery Progress Note: Obj - Vital signs Vital signs: Vital Signs - Most Recent Temp Pulse Resp BP Pulse Ox 97.8 F 56 L 18 117/77 94 L 10/23/20 07:35 10/23/20 07:35 10/23/20 07:35 10/23/20 07:35 10/23/20 07:35 Surgery Progress Note: Results - Labs Result Diagrams: 10/22/20 07:09 10/24/20 05:40 Lab results: Laboratory Results - last 12 hr 10/23/20 05:41 Sodium 142 Potassium 4.8 Chloride 103 Carbon Dioxide 31 H Anion Gap 13 BUN 11 Creatinine 1.11 Estimated GFR (MDRD) 72 Glucose 118 H Calcium 8.9
[2020-10-23] MEDS: Atenolol 25 MG TAB PO SCH (21:10)
[2020-10-23] MEDS: FLUoxetine HCl 20 MG CAP PO SCH (21:10)
[2020-10-23] MEDS: Atorvastatin Calcium 10 MG TAB PO SCH (21:11)
[2020-10-23] MEDS: Cyproheptadine 4 MG TAB PO SCH (21:34)
--- NOTE | 2020-10-23 23:20 | PRG ---
DATE OF SERVICE: 10/23/2020 REASON FOR CONSULTATION: History of small bowel Crohn disease, small bowel obstruction. SUBJECTIVE: The patient was able to tolerate a liquid diet today with clamping of the NG tube, so the NG tube was ultimately discontinued. After the NG tube was removed, he has not had any significant nausea, vomiting, or increase in his abdominal pain. After the small bowel follow through, he has had multiple bowel movements within the last 12-24 hours with no evidence of hematochezia or melena. He also states that his abdominal pain has improved with the pain primarily around the periumbilical region at this time and reaching a severity of 6/10. OBJECTIVE: VITAL SIGNS: Temperature 98.1, pulse 66, blood pressure 150/81, respiratory rate 20, saturating 96% on room air. GENERAL: The patient was lying in bed, in no acute distress. Alert and oriented x4. CARDIOVASCULAR: Regular rate and rhythm. RESPIRATORY: Clear to auscultation bilaterally. ABDOMEN: Normoactive bowel sounds. Soft. Tenderness to palpation in the periumbilical and right mid abdomen. Multiple surgical scars also noted. EXTREMITIES: No cyanosis, clubbing, or edema. LABORATORY DATA: Chemistry with a sodium of 142, potassium 4.8, chloride 103, CO2 of 31, BUN 11, creatinine 1.11, glucose 118. IMAGING DATA: A small-bowel follow-through was obtained on October 22, 2020, which showed prominence of the proximal small bowel loops, but no evidence of high-grade obstruction as the contrast passed into the colon without difficulty at approximately 1 hour. ASSESSMENT AND PLAN: The patient is a 45-year-old male with past medical history of obesity, depression, anxiety, and Crohn disease affecting both the small and large bowel with initial diagnosis approximately now status post multiple abdominal surgeries, currently presenting with increased abdominal pain, nausea, vomiting, and imaging consistent with small bowel obstruction (now resolving). Small bowel obstruction: Patient initially presented to the hospital with increasing abdominal pain, nausea, and vomiting with CT imaging showing extensive postoperative changes in the right abdomen and multiple dilated small bowel loops representing a small bowel obstruction. Given his significant surgeries in the past, this was deemed to be better suited more toward conservative management with NG tube suction and n.p.o. status. Over the next 12-24 hours, the patient has responded well with significant improvement in his nausea and vomiting, and improvement in his abdominal pain as well. Small bowel follow through obtained on October 22, 2020, showed that the passage of contrast into the colon at approximately 1-hour making continued small bowel obstruction highly unlikely, although the small bowel follow-through did show mildly dilated proximal small bowel loops indicative of resolving small bowel obstruction. At this time, the patient has been able to tolerate a liquid diet without difficulty and is passing gas in addition to having multiple bowel movements after the small bowel follow-through. At this time, it is difficult to discern whether or not the small-bowel obstruction was due to active Crohn disease or intraabdominal adhesive disease, but again currently responding to more conservative management. Recommendations: 1. Would continue the patient on a liquid diet for now and slowly advance the diet as tolerated. 2. We would avoid any narcotic medications as it can delay intestinal motility and further contribute to an obstructive-type picture. 3. We will continue the patient on steroids for now, and consider discharging the patient on a short course of steroid taper (40 mg x3 days, 30 mg x3 days, 20 mg x3 days, 10 mg x3 days, then off) until the patient is able to follow up with his outpatient fax machine operator (Dr. Ian Ackerman). Pancreatic lesion: On initial imaging of the patient's abdomen, there was noted to be a 2.1 cm density adjacent to the head/body of the pancreas that was felt to be either an enlarged lymph node inflammation or possible malignant process (less likely). At this time, this is unknown if this is a new or stable finding, and will likely need repeat imaging within the next 2-3 months with pancreatic protocol for further characterization. Recommendations: 1. Would repeat the CT scan using a pancreatic protocol in approximately 2-3 months for further surveillance of this lesion, this can be done by the patient's primary outpatient fax machine operator at [facility] in [place]. We will continue to follow, please call with any questions. Job ID: [id number]
[2020-10-24] MEDS: Morphine 4 MG/ML VIAL SLOW IVP PRN ×4 (01:31→12:57)
[2020-10-24] MEDS: methylPREDNISolone Sod Succ 40 MG VIAL IVP SCH ×2 (05:41→12:56)
[2020-10-24 06:24] LABS: Anion Gap 15 mmol/L (10-20); BUN (Urea Nitrogen) 13 mg/dL (8.9-20.6); Calc. Creatinine Clearance 131 mL/min (70-130); Calcium 8.9 mg/dL (7.8-10.44); Carbon Dioxide 28 mmol/L (22-29); Chloride 102 mmol/L (98-107); Estimated GFR-MDRD 79; Glucose 102 mg/dL (70-105); Potassium 4.5 mmol/L (3.5-5.1); Sodium 140 mmol/L (136-145)
[2020-10-24] MEDS: Bupropion 150 MG XL TAB PO SCH (08:58)
[2020-10-24] MEDS: Enoxaparin Sodium 40 MG/0.4 ML SYRINGE SC SCH (08:59)
[2020-10-24] MEDS: Pantoprazole 40 MG VIAL IVP SCH (08:59)
[2020-10-24] MEDS: D5 1/2 NS w/20 mEq KCL 1,000 ML IV SCH ×2 (09:06→15:23)
--- NOTE | 2020-10-24 14:47 | PDOC.GSPN ---
Surgery Progress Note: Subj - Subjective Narrative: Patient is feeling okay. Pain is tolerable. He is tolerating his full liquid diet. Abdomen is soft and minimally tender to palpation. Assessment/plan: Doing well with clinical resolution of partial small bowel obstruction. Will check with GI regarding oral steroids. Home today. He can follow-up with surgery as needed basis. Surgery Progress Note: Obj - Vital signs Vital signs: Vital Signs - Most Recent Temp Pulse Resp BP Pulse Ox 97.6 F 63 16 155/84 H 97 10/24/20 11:25 10/24/20 11:25 10/24/20 11:25 10/24/20 11:25 10/24/20 11:25 Surgery Progress Note: Results - Labs Result Diagrams: 10/22/20 07:09 10/24/20 05:40 Lab results: Laboratory Results - last 12 hr 10/24/20 05:40 Sodium 140 Potassium 4.5 Chloride 102 Carbon Dioxide 28 Anion Gap 15 BUN 13 Creatinine 1.03 Estimated GFR (MDRD) 79 Glucose 102 Calcium 8.9
[2020-10-24 15:50] VITALS: BP 134/80; TEMP 97.8
--- NOTE | 2020-10-25 00:38 | DIS ---
DATE OF ADMISSION: 10/19/2020 DATE OF DISCHARGE: 10/24/2020 CURRENT DIAGNOSES: 1. Partial small bowel obstruction resolving with conservative management. 2. Crohn disease. 3. Nausea and vomiting secondary to #1, resolved. 4. Hypertension, stable. CONSULTATIONS: 1. Primary Service attending Dr. Root with General Surgery Service. 2. Dr. Foster and Dr. Ashley with Gastroenterology Service. 3. Hospitalist team for medical management. PERTINENT LABORATORY AND X-RAY FINDINGS: CRP 4.96. LFTs within normal limits. CBC showed a white blood cell count ranging between 7.1 to 11.3, ESR 44. COVID-19 PCR not detected on 10/19/2020. Portable chest x-ray dated on 10/19/2020, showed enteric catheter in appropriate positioning. CT of the abdomen and pelvis dated 10/19/2020, showed small bowel obstruction, possibly at the site of an enteroenteric anastomosis. Gastrografin enema dated 10/20/2020, showed patency of the anastomosis involving small bowel to transverse colon without evidence of extraluminal contrast media or leak. Small bowel follow-through dated 10/22/2020, showed no evidence of high-grade obstruction with contrast in the colon. HOSPITAL COURSE: The patient was admitted under the General Surgery service after presenting with increased abdominal pain with associated nausea, vomiting, and recurrent small-bowel obstruction. The patient with multiple previous laparotomies with ostomies and subsequent takedowns with recurrent abdominal pain and small-bowel obstruction. The patient was given an NG tube for gastric decompression and n.p.o. status. The patient was monitored for approximately four days with resolution of the small bowel obstruction without surgical intervention. The patient was resumed on his regular outpatient medication regimen and overall remained clinically stable. Currently, the patient is tolerating full liquid diet with minimal abdominal discomfort. Likely patient to discharge in the next 24 hours. Hospitalist team will sign off currently. Please call with additional questions or needs. CURRENT MEDICATIONS: 1. Atenolol 25 mg p.o. at bedtime. 2. Cyproheptadine 4 mg p.o. at bedtime. 3. Lipitor 10 mg p.o. at bedtime. 4. Prozac 20 mg p.o. at bedtime. 5. Seroquel 800 mg p.o. at bedtime. 6. Vitamin B12 of 1000 mcg p.o. daily. 7. Wellbutrin XL 300 mg p.o. q.a.m. 8. Prednisone 40 mg p.o. q.a.m. FOLLOWUP: The patient may follow up with Dr. Root. The patient will follow up with his primary care provider, Dr. Nataliia Reyes. CONDITION ON DISCHARGE: Currently stable. ACTIVITY: Ad-john. DIET: Full liquids. CODE STATUS: Full. DISPOSITION: Likely home in the next 24 hours. Job ID: [id number]
[2020-10-25] MEDS ORDERED: predniSONE 20 MG TAB PO SCH (08:00)
[2020-10-28] MEDS ORDERED: predniSONE 20 MG TAB PO SCH (08:00)
[2020-10-31] MEDS ORDERED: predniSONE 20 MG TAB PO SCH (08:00)
[2020-11-03] MEDS ORDERED: predniSONE 20 MG TAB PO SCH (08:00)
== END 2020-10-24 17:26 | disposition home or self-care (01) | DRG 389 ==
LOC: ERS 21:57 → SURG B 22:44
PROVIDERS: ADMIT Surgery; ATTEND Surgery
PROC: 0D9670Z Drainage of Stomach with Drainage Device, Via Natural or Artificial Opening (ICD-10-PCS; principal; 2020-10-19)
DX: K56.51 Intestinal adhesions [bands], with partial obstruction (principal); K50.90 Crohn's disease, unspecified, without complications; I10 Essential (primary) hypertension; F41.9 Anxiety disorder, unspecified; F32.9 Major depressive disorder, single episode, unspecified; F43.10 Post-traumatic stress disorder, unspecified; E66.9 Obesity, unspecified; D72.829 Elevated white blood cell count, unspecified; Z20.828 Contact with and (suspected) exposure to other viral communicable diseases; E78.5 Hyperlipidemia, unspecified; K86.9 Disease of pancreas, unspecified; Z88.6 Allergy status to analgesic agent; Z79.899 Other long term (current) drug therapy; Z68.32 Body mass index [BMI] 32.0-32.9, adult
CPT/HCPCS: 36415; 71045; 74018; 74250; 74280; 80048; 80053; 85025; 85652; 86140; 87635; C9113; J1650; J1885; J2270; J2405; J2920; J3480; Q9963; U0003

== ENCOUNTER 2020-12-26 13:32 | Emergency (ER) | payer OTHER ==
[~2020-12-26 13:32] MED LIST: Iopamidol-370 76% 500 ML 1 ML ONE
[2020-12-26] MEDS ORDERED: Morphine 2 MG/ML VIAL ONE (14:21)
[2020-12-26] MEDS ORDERED: Ondansetron PF 4 MG/2 ML Vial ONE (14:21)
[2020-12-26 14:43] LABS: #Eosinphils 0.2 thou/uL (0.0-0.7); #Lymphocytes 1.4 thou/uL (1.20-3.40); #Monocytes 0.7 thou/uL (0.11-0.59); #Neutrophils 3.9 thou/uL (1.40-6.50); %Basophils 0.7 % (0.0-1.0); %Eosinophils 2.9 % (0.0-10.0); %Monocytes 11.6 % (0.0-10.0); %Neutrophils 62.9 % (42.0-75.0); Hemoglobin 13.5 g/dL (14.0-18.0); Mean Corpuscular HGB CONC 32.6 g/dL (32.0-36.0); Mean Corpuscular Hemoglobin 27.7 pg (27.0-31.0); Mean Platelet Volume 7.3 fL (7.4-10.4); Platelet Count 227 thou/uL (130-400); RBC Distribution Width 14.2 % (11.5-14.5); Red Blood Cell (RBC) Count 4.88 mill/uL (4.70-6.10); White Blood Cell (WBC) Count 6.2 thou/uL (4.8-10.8)
[2020-12-26] MEDS ORDERED: HYDROmorphone 0.5 MG/0.5 ML SYRINGE ONE (15:09)
[2020-12-26 15:14] LABS: ALT (SGPT) 30 U/L (8-55); AST (SGOT) 26 U/L (5-34); Alkaline Phosphatase 94 U/L (40-110); Anion Gap 11 mmol/L (10-20); BUN (Urea Nitrogen) 13 mg/dL (8.9-20.6); Bilirubin, Total 0.2 mg/dL (0.2-1.2); Calc. Creatinine Clearance 0 mL/min (70-130); Calcium 8.8 mg/dL (7.8-10.44); Carbon Dioxide 29 mmol/L (22-29); Chloride 104 mmol/L (98-107); Globulin 3.4 g/dL (2.4-3.5); Glucose 87 mg/dL (70-105); Lipase 26 U/L (8-78); Potassium 4.3 mmol/L (3.5-5.1); Protein, Total 7.4 g/dL (6.0-8.3); Sodium 140 mmol/L (136-145)
--- NOTE | 2020-12-26 15:44 | CT ---
CT abdomen and pelvis with IV contrast HISTORY: Abdominal pain. Crohn's disease. Multiple prior surgeries. COMPARISON: 11/28/2020. FINDINGS: Minimal atelectasis at the lung bases. Old healed left posterior rib fractures. Extensive peritoneal and intra-abdominal dystrophic calcifications are again demonstrated. Unchanged from prior exams. Extensive postoperative changes from prior bowel resections. No evidence of bowel obstruction or active inflammation. At the inferior pole of each kidney, calcifications are again demonstrated within nondilated calyces, measuring up to 0.6 cm on the right and 0.5 cm on the left on today's exam. Urinary bladder is incompletely distended. Degenerative changes throughout the lumbar spine. IMPRESSION : Extensive intraperitoneal dystrophic calcifications, nonobstructing bilateral renal calculi, and othe r chronic-type findings are stable. No evidence of bowel obstruction or acute inflammation.
== END 2020-12-26 17:57 | disposition home or self-care (01) ==
LOC: ERS 13:32
DX: R10.84 Generalized abdominal pain (principal); R11.2 Nausea with vomiting, unspecified; R19.7 Diarrhea, unspecified; I10 Essential (primary) hypertension; I25.2 Old myocardial infarction; F17.220 Nicotine dependence, chewing tobacco, uncomplicated; Z79.899 Other long term (current) drug therapy
CPT/HCPCS: 74177; 80053; 83605; 83690; 85025; 96374; 96375; J1170; J2270; J2405; Q9967

== ENCOUNTER 2021-01-29 22:00 | Emergency (ER) | payer OTHER ==
[~2021-01-29 22:00] MED LIST changes: +Iopamidol 370 76% 50 ML VIAL FS ONE
[2021-01-29 22:48] LABS: #Eosinphils 0.2 thou/uL (0.0-0.7); #Lymphocytes 1.7 thou/uL (1.20-3.40); #Monocytes 0.7 thou/uL (0.11-0.59); #Neutrophils 6.4 thou/uL (1.40-6.50); %Basophils 0.5 % (0.0-1.0); %Eosinophils 1.7 % (0.0-10.0); %Lymphocytes 18.9 % (21.0-51.0); %Monocytes 7.8 % (0.0-10.0); %Neutrophils 71.1 % (42.0-75.0); Hemoglobin 14.7 g/dL (14.0-18.0); Mean Corpuscular HGB CONC 34.6 g/dL (32.0-36.0); Mean Corpuscular Hemoglobin 29.3 pg (27.0-31.0); Mean Corpuscular Volume 84.6 fL (78.0-98.0); Mean Platelet Volume 7.1 fL (7.4-10.4); Platelet Count 203 thou/uL (130-400); RBC Distribution Width 13.8 % (11.5-14.5); Red Blood Cell (RBC) Count 5.01 mill/uL (4.70-6.10); White Blood Cell (WBC) Count 8.9 thou/uL (4.8-10.8)
[2021-01-29] MEDS ORDERED: Ondansetron PF 4 MG/2 ML Vial ONE (22:51)
[2021-01-29] MEDS ORDERED: Morphine 4 MG/ML VIAL ONE (22:51)
[2021-01-29 23:11] LABS: ALT (SGPT) 41 U/L (8-55); AST (SGOT) 31 U/L (5-34); Albumin 4.3 g/dL (3.5-5.0); Alkaline Phosphatase 118 U/L (40-110); Anion Gap 17 mmol/L (10-20); BUN (Urea Nitrogen) 12 mg/dL (8.9-20.6); Bilirubin, Total 0.4 mg/dL (0.2-1.2); Calc. Creatinine Clearance 0 mL/min (70-130); Calcium 9.7 mg/dL (7.8-10.44); Carbon Dioxide 23 mmol/L (22-29); Chloride 102 mmol/L (98-107); Globulin 3.6 g/dL (2.4-3.5); Glucose 103 mg/dL (70-105); Lipase 49 U/L (8-78); Potassium 3.4 mmol/L (3.5-5.1); Protein, Total 7.9 g/dL (6.0-8.3); Sodium 139 mmol/L (136-145)
[2021-01-30] MEDS ORDERED: Morphine 4 MG/ML VIAL ONE ×2 (01:20→04:57)
[2021-01-30 04:09] LABS: SARS-CoV-2 NAA Rapid Test Not Detected (NotDetected)
[2021-01-30] MEDS ORDERED: Ketorolac Tromethamine 30 MG/ML VIAL ONE (04:57)
== END 2021-01-30 07:04 ==
LOC: ERS 22:00
DX: K56.609 Unspecified intestinal obstruction, unspecified as to partial versus complete obstruction (principal); I10 Essential (primary) hypertension; I25.2 Old myocardial infarction; F17.220 Nicotine dependence, chewing tobacco, uncomplicated; Z79.899 Other long term (current) drug therapy
CPT/HCPCS: 74177; 80053; 83690; 85025; 96374; 96375; 96376; J1885; J2270; J2405; Q9967; U0002

== ENCOUNTER 2021-02-13 23:44 | Emergency (ER) | payer OTHER ==
[2021-02-14 00:10] LABS: #Eosinphils 0.1 thou/uL (0.0-0.7); #Monocytes 1.1 thou/uL (0.11-0.59); #Neutrophils 11.8 thou/uL (1.40-6.50); %Basophils 0.3 % (0.0-1.0); %Eosinophils 0.5 % (0.0-10.0); %Lymphocytes 13.1 % (21.0-51.0); %Monocytes 7.4 % (0.0-10.0); %Neutrophils 78.7 % (42.0-75.0); Hemoglobin 14.9 g/dL (14.0-18.0); Mean Corpuscular HGB CONC 33.1 g/dL (32.0-36.0); Mean Corpuscular Hemoglobin 28.3 pg (27.0-31.0); Mean Corpuscular Volume 85.6 fL (78.0-98.0); Mean Platelet Volume 6.9 fL (7.4-10.4); Platelet Count 286 thou/uL (130-400); RBC Distribution Width 14.1 % (11.5-14.5); Red Blood Cell (RBC) Count 5.26 mill/uL (4.70-6.10); White Blood Cell (WBC) Count 14.9 thou/uL (4.8-10.8)
[2021-02-14 00:36] LABS: ALT (SGPT) 46 U/L (8-55); AST (SGOT) 31 U/L (5-34); Albumin 4.1 g/dL (3.5-5.0); Alkaline Phosphatase 111 U/L (40-110); Anion Gap 19 mmol/L (10-20); BUN (Urea Nitrogen) 9 mg/dL (8.9-20.6); Bilirubin, Total 0.5 mg/dL (0.2-1.2); Calc. Creatinine Clearance 0 mL/min (70-130); Calcium 9.1 mg/dL (7.8-10.44); Carbon Dioxide 19 mmol/L (22-29); Chloride 105 mmol/L (98-107); Globulin 3.7 g/dL (2.4-3.5); Glucose 138 mg/dL (70-105); Lipase 42 U/L (8-78); Potassium 3.4 mmol/L (3.5-5.1); Protein, Total 7.8 g/dL (6.0-8.3); Sodium 140 mmol/L (136-145)
[2021-02-14] MEDS ORDERED: Morphine 4 MG/ML VIAL ONE ×2 (00:40→01:26)
[2021-02-14] MEDS ORDERED: Ondansetron PF 4 MG/2 ML Vial ONE (00:40)
[2021-02-14] MEDS ORDERED: Piperacillin/Tazobactam 3.375 GM VIAL ONE (01:02)
[2021-02-14 03:09] LABS: Lactic Acid 1.8 mmol/L (0.5-2.2)
[2021-02-14 04:18] LABS: SARS-CoV-2 NAA Rapid Test Not Detected (NotDetected)
== END 2021-02-14 05:45 | disposition short-term general hospital (02) ==
LOC: ERS 23:44
DX: K56.609 Unspecified intestinal obstruction, unspecified as to partial versus complete obstruction (principal); I10 Essential (primary) hypertension; I25.2 Old myocardial infarction; F17.220 Nicotine dependence, chewing tobacco, uncomplicated; Z79.899 Other long term (current) drug therapy
CPT/HCPCS: 0240U; 36415; 74018; 74022; 80053; 83605; 83690; 85025; 87040; 96365; 96372; 96375; 96376; J0500; J2270; J2405; J2543

== ENCOUNTER 2021-09-23 00:21 | Emergency (ER) | payer OTHER ==
[2021-09-23 01:39] LABS: #Eosinphils 0.1 thou/uL (0.0-0.7); #Lymphocytes 0.9 thou/uL (1.20-3.40); #Monocytes 0.8 thou/uL (0.11-0.59); #Neutrophils 6.1 thou/uL (1.40-6.50); %Basophils 0.1 % (0.0-1.0); %Eosinophils 1.3 % (0.0-10.0); %Lymphocytes 11.8 % (21.0-51.0); %Monocytes 10.3 % (0.0-10.0); %Neutrophils 76.5 % (42.0-75.0); Hemoglobin 13.3 g/dL (14.0-18.0); Mean Corpuscular HGB CONC 34.5 g/dL (32.0-36.0); Mean Corpuscular Hemoglobin 28.9 pg (27.0-31.0); Mean Platelet Volume 6.8 fL (7.4-10.4); Platelet Count 215 thou/uL (130-400); RBC Distribution Width 14.4 % (11.5-14.5); Red Blood Cell (RBC) Count 4.59 mill/uL (4.70-6.10)
[2021-09-23 01:50] LABS: ALT (SGPT) 23 U/L (8-55); AST (SGOT) 26 U/L (5-34); Alkaline Phosphatase 77 U/L (40-110); Anion Gap 14 mmol/L (10-20); BUN (Urea Nitrogen) 11 mg/dL (8.9-20.6); Bilirubin, Total 0.3 mg/dL (0.2-1.2); Calc. Creatinine Clearance 0 mL/min (70-130); Calcium 9.1 mg/dL (7.8-10.44); Carbon Dioxide 27 mmol/L (22-29); Chloride 100 mmol/L (98-107); Globulin 3.3 g/dL (2.4-3.5); Glucose 117 mg/dL (70-105); Protein, Total 7.3 g/dL (6.0-8.3); Sodium 137 mmol/L (136-145)
[2021-09-23] MEDS ORDERED: Acetaminophen 500 MG TAB ONE (02:03)
[2021-09-23] MEDS ORDERED: Ketorolac Tromethamine 30 MG/ML VIAL ONE (02:53)
== END 2021-09-23 02:58 | disposition home or self-care (01) ==
LOC: ERS 00:21
DX: R56.9 Unspecified convulsions (principal); I10 Essential (primary) hypertension; K50.90 Crohn's disease, unspecified, without complications; I25.2 Old myocardial infarction; F17.220 Nicotine dependence, chewing tobacco, uncomplicated
CPT/HCPCS: 36415; 70450; 70486; 71045; 72131; 80053; 85025; 93005; 96374; J1885